=== PATIENT | female | born 1970 | race African-American/Black ===

== ENCOUNTER 2017-02-25 12:56 | Emergency (ER) | payer MEDICAID, OTHER ==
[~2017-02-25] VITALS: Ht 160 cm; Wt 103.0 kg
[2017-02-25] MEDS ORDERED: LOSARTAN POTASSIUM 25 MG TABLET PO ONE (15:30)
[2017-02-25] MEDS ORDERED: ONDANSETRON HCL 4MG/2ML VIAL IV ONE (15:30)
[2017-02-25] MEDS ORDERED: KETOROLAC 30MG/ML VIAL IV ONE (15:30)
[2017-02-25] MEDS ORDERED: SODIUM CHLORIDE 0.9% 1,000 ML IV ONE (15:30)
[2017-02-25 18:24] VITALS: BP 152/72
== END 2017-02-25 18:33 | disposition home or self-care (01) ==
LOC: EDBD 12:56 → ER 13:18
DX: G44.209 Tension-type headache, unspecified, not intractable (principal); I10 Essential (primary) hypertension
CPT/HCPCS: 93005; 96361; 96374; 96375; 99285; J1885; J2405; J7030; Z7610